=== PATIENT | male | born 2000 | race Hispanic/Latino ===

== ENCOUNTER 2024-07-03 12:51 | Emergency (ER) | payer SELFPAY ==
[2024-07-03 13:41] LABS: Absolute Basophils 0.1 K/uL (0-0.5); Absolute Eosinophils 0.1 K/uL (0-0.5); Absolute Lymphocytes (CBC) 2.4 K/uL (0.7-4.9); Absolute Monocytes 1.1 K/uL (0.1-1.3); Absolute Neutrophil 7.3 K/uL (1.8-8.0); Basophils % 0.6 % (0-1.3); Eosinophils % 1.3 % (0-4.4); Hematocrit 48.9 % (39.6-49.0); Hemoglobin 16.6 g/dL (13.6-17.9); Lymphocytes % 21.6 % (15.3-44.8); MCH 32.1 pg (27.0-35.0); MCV 94.3 fL (80-100); MPV 8.9 fL (7.6-11.3); Monocytes % 9.9 % (3.3-12.3); Neutrophils % 66.6 % (41.7-73.7); Nucleated Red Blood Cells % 0.2 % (0-0); Platelets 220 thou/uL (152-406); RBC Red Blood Cell Count 5.18 M/uL (4.33-5.43); Red Cell Distribution Width 13.8 % (12.1-15.2)
--- NOTE | 2024-07-03 13:45 | RAD REPORT ---
EXAM DESCRIPTION: CTAbdomen Pelvis W Contrast - 07/03/2024 1:26 pm CLINICAL HISTORY: Abdominal pain. GI BLEED COMPARISON: No comparisons TECHNIQUE: CT imaging of the abdomen and pelvis was performed with 100 ml non-ionic IV contrast. All CT scans are performed using dose optimization technique as appropriate and may include automated exposure control or mA/KV adjustment according to patient size. FINDINGS: The lung bases are clear. The liver demonstrates diffuse fatty infiltration. The spleen, pancreas, adrenal glands and kidneys a re within normal limits. No bowel obstruction, free air, free fluid or abscess. Moderate stool is present throughout the colon . The appendix is normal. No evidence of significant lymphadenopathy. No suspicious bony findings. IMPRESSION: No acute intra-abdominal or pelvic finding. Fatty liver.
[2024-07-03 13:58] LABS: Anion Gap 7.2 mEq/L (5.0-15.0); Bilirubin Total 0.8 mg/dL (0.2-1.0); Globulin 4.2 g/dL (2.3-3.5); Protein, Total 8.2 g/dL (6.4-8.2)
[2024-07-03 14:00] LABS: Potassium 4.2 mEq/L (3.5-5.1)
[2024-07-03 15:47] LABS: Sqamous Epithelial None Seen /HPF (None Seen); Urine Bacteria None Seen /HPF (<20); Urine Bilirubin NEGATIVE (Negative); Urine Blood Negative (Negative); Urine Clarity Clear (Clear); Urine Color Light-Yellow (Yellow); Urine Crystals Unidentified Few /HPF (None Seen); Urine Culture Reflex Order NOT NEEDED; Urine Glucose NEGATIVE (Negative); Urine Ketones NEGATIVE (Negative); Urine Microscopic Reflex YN ORDER UMIC; Urine Nitrite NEGATIVE (Negative); Urine Protein TRACE (Negative); Urine Urobilinogen Normal (Normal); Urine pH 7.5 (5.0-7.0)
[2024-07-03 15:48] LABS: Specific Gravity > 1.030 (1.005-1.030)
--- NOTE | 2024-07-03 15:57 | ER ---
Nurse's Notes [facility] Name: Abraham Dickey Jr Age: 23 yrs Sex: Male : 2000 Arrival Date: 07/03/2024 Time: 12:51 Bed 13 Private MD: Diagnosis: Other hemorrhoids-internal Presentation: 07/03 13:03 Chief complaint: Patient states: for past 2 weeks when I poop it's bright red blood, iw diarrhea with blood X 3 days, denies abd pain. Coronavirus screen: At this time, the client does not indicate any symptoms associated with coronavirus-19. Ebola Screen: No symptoms or risks identified at this time. Onset of symptoms was June 17, 2024. 13:03 Method Of Arrival: Ambulatory 13:03 Acuity: RUBI 3 13:38 Initial Sepsis Screen: Does the patient meet any 2 criteria? No. Patient's initial mb9 sepsis screen is negative. Does the patient have a suspected source of infection? No. Patient's initial sepsis screen is negative. Risk Assessment: Do you want to hurt yourself or someone else? Patient reports no desire to harm self or others. Historical: - Allergies: 13:05 Pollen; iw - Home Meds: 13:05 None [Active]; iw - PMHx: 13:05 None; iw - PSHx: 13:05 None; iw - Immunization history:: Adult Immunizations not up to date. - Infectious Disease History:: Denies. - Social history:: Smoking status: Reported history of juuling and/or vaping. Screenin:38 [facility] ED Fall Risk Assessment (Adult) History of falling in the last 3 months, mb9 including since admission No falls in past 3 months (0 pts) Confusion or Disorientation No (0 pts) Intoxicated or Sedated No (0 pts) Impaired Gait No (0 pts) Mobility Assist Device Used No (0 pt) Altered Elimination No (0 pt) Score/Fall Risk Level 3 or more points = High Risk Oriented to surroundings, Maintained a safe environment, Educated pt \T\ family on fall prevention, incl call for assistance when getting out of bed, Assessed \T\ reinforced patient's understanding of fall precautions. Abuse screen: Denies threats or abuse. Nutritional screening: No deficits noted. Tuberculosis screening: No symptoms or risk factors identified. Assessment: 13:38 General: Appears in no apparent distress. Behavior is calm, cooperative. Pain: Denies mb9 pain. Neuro: Hood Agitation-Sedation Scale (RASS): 0 - Alert and Calm Level of Consciousness is awake, alert, obeys commands, Oriented to person, place, time, situation, Appropriate for age. Cardiovascular: Patient's skin is warm and dry. Respiratory: Airway is patent Respiratory effort is even, unlabored, Respiratory pattern is regular, symmetrical. GI: Abdomen is round non-distended, Bowel sounds present X 4 quads. Abd is soft and non tender X 4 quads. Reports diarrhea, bloody stool. : No signs and/or symptoms were reported regarding the genitourinary system. EENT: No signs and/or symptoms were reported regarding the EENT system. Derm: Skin is pink, warm \T\ dry. Musculoskeletal: Range of motion: intact in all extremities. 15:21 Reassessment: No changes from previously documented assessment. Patient and/or family mb9 updated on plan of care and expected duration. Pain level reassessed. Patient is alert, oriented x 3, equal unlabored respirations, skin warm/dry/pink. Vital Signs: 13:03 BP 124 / 87; Pulse 105; Resp 16; Pulse Ox 98% on R/A; Weight 117.93 kg; Height 6 ft. 3 iw in. ; Pain 0/10; 14:27 BP 120 / 71; Pulse 83; Resp 18; Pulse Ox 98% on R/A; mb9 13:03 Body Mass Index 32.50 (117.93 kg, 190.5 cm) iw 13:03 Pain Scale: Adult iw ED Course: 12:55 Patient arrived in ED. ra3 12:58 Cheri Keith PA-C is PHCP. sb4 12:58 Arik Groves MD is Attending Physician. sb4 13:05 Triage completed. iw 13:05 Arm band placed on. iw 13:26 Shaylee Birch, ZEENAT is Primary Nurse. mb9 13:27 CT Abd/Pelvis - IV Contrast Only In Process Unspecified. EDMS 13:37 Initial lab(s) drawn, by me, sent to lab. Inserted saline lock: 20 gauge in left mb9 antecubital area, using aseptic technique. Blood collected. Flushed with 10 mL NS. 13:39 Placed in gown. Bed in low position. Call light in reach. Side rails up X 1. Provided mb9 Education on: press call light if needing anything. Client placed on continuous cardiac and pulse oximetry monitoring. NIBP monitoring applied. phototypesetting equipment monitor on. Door closed. Noise minimized. Warm blanket given. Pillow given. 13:39 No provider procedures requiring assistance completed. mb9 13:39 CBC with Diff Sent. mb9 13:39 CMP Sent. mb9 13:39 Lipase Sent. mb9 15:56 Josafat Mendez MD is Referral Physician. sb4 16:07 IV discontinued, intact, bleeding controlled, No redness/swelling at site. Pressure mb9 dressing applied. Administered Medications: No medications were administered Medication: 13:38 VIS not applicable for this client. mb9 Outcome: 15:57 Discharge ordered by . sb4 16:07 Discharged to home ambulatory, mb9 16:07 Condition: stable 16:07 Discharge instructions given to patient, Instructed on discharge instructions, follow up and referral plans. Demonstrated understanding of instructions, follow-up care, 16:21 Patient left the ED. mb9 Signatures: Dispatcher [employer] EDSariah Oquendo RN Cheri Grant, PA-C PA-C sb4 Shaylee Birch RN RN mb9 Genoveva Willams ra3 Corrections: (The following items were deleted from the chart) 14:35 14:27 Pulse 83bpm; Resp 18bpm; Pulse Ox 98% RA; mb9 mb9
--- NOTE | 2024-07-03 15:57 | EDPHYS ---
Physician Documentation [facility] Name: Abraham Dickey Jr Age: 23 yrs Sex: Male : 2000 Arrival Date: 07/03/2024 Time: 12:51 Bed 13 Private MD: ED Physician Arik Groves HPI: 07/03 13:12 This 23 yrs old Male presents to ER via Ambulatory with complaints of Diarrhea sb4 - with blood x2days. 13:12 The patient presents to the emergency department with diarrhea. Onset: The sb4 symptoms/episode began/occurred 2 day(s) ago. patient states that he has had bright red blood in his stool for about 2 weeks now and 3 days ago it turned into diarrhea. he denies any pain in his rectum or abdomen. no nausea, vomiting, fevers. denies any recent antibiotics, nsaid, or excessive alcohol use. denies any prior occurrences. states he usually has normal BMs. Historical: - Allergies: 13:05 Pollen; iw - Home Meds: 13:05 None [Active]; iw - PMHx: 13:05 None; iw - PSHx: 13:05 None; iw - Immunization history:: Adult Immunizations not up to date. - Infectious Disease History:: Denies. - Social history:: Smoking status: Reported history of juuling and/or vaping. ROS: 13:12 Constitutional: Negative for fever, chills, and weight loss, sb4 13:12 Abdomen/GI: Positive for diarrhea, rectal bleeding, 13:12 All other systems are negative, Exam: 13:12 Constitutional: This is a well developed, well nourished patient who is awake, alert, sb4 and in no acute distress. Head/Face: Normocephalic, atraumatic. Eyes: Extra-ocular motions intact. Periorbital areas with no swelling, redness, or edema. ENT: Mucous membranes moist. Cardiovascular: Regular rate and rhythm with a normal S1 and S2. Respiratory: Lungs have equal breath sounds bilaterally, clear to auscultation and percussion. No rales, rhonchi or wheezes noted. No increased work of breathing, no retractions or nasal flaring. Abdomen/GI: Soft, non-tender, no distension. Skin: Warm, dry with normal turgor. Normal color with no rashes, no lesions, and no evidence of cellulitis. 13:12 Abdomen/GI: Rectal exam: the exam is deferred, because of patient request, refused, Vital Signs: 13:03 BP 124 / 87; Pulse 105; Resp 16; Pulse Ox 98% on R/A; Weight 117.93 kg; Height 6 ft. 3 iw in. ; Pain 0/10; 14:27 BP 120 / 71; Pulse 83; Resp 18; Pulse Ox 98% on R/A; mb9 13:03 Body Mass Index 32.50 (117.93 kg, 190.5 cm) iw 13:03 Pain Scale: Adult iw MDM: 13:03 Patient medically screened. sb4 15:56 Data reviewed: vital signs, nurses notes, lab test result(s), radiologic studies, and sb4 as a result, I will discharge patient. Counseling: I had a detailed discussion with the patient and/or guardian regarding the historical points, exam findings, and any diagnostic results supporting the discharge/admit diagnosis, lab results, radiology results, the need for outpatient follow up, a accountant supervisor, to return to the emergency department if symptoms worsen or persist or if there are any questions or concerns that arise at home. 07/03 13:12 Order name: CBC with Diff; Complete Time: 13:52 sb4 07/03 13:12 Order name: CMP; Complete Time: 14:01 sb4 07/03 13:12 Order name: Lipase; Complete Time: 14:01 sb4 07/03 13:12 Order name: Urinalysis w/ reflexes; Complete Time: 15:48 sb4 07/03 13:12 Order name: CT Abd/Pelvis - IV Contrast Only sb4 07/03 13:12 Order name: IV Saline Lock; Complete Time: 13:39 sb4 07/03 13:12 Order name: Labs collected and sent; Complete Time: 13:39 sb4 Administered Medications: No medications were administered Disposition: 20:02 Co-signature as Attending Physician, Arik Groves MD I reviewed the patient's care rn provided by the Advanced Practice Provider and agree with the diagnosis and treatment plan. Disposition Summary: 07/03/24 15:57 Discharge Ordered Notes: Location: Home sb4 Problem: new sb4 Symptoms: have improved sb4 Condition: Stable sb4 Diagnosis - Other hemorrhoids - internal sb4 Followup: sb4 - With: Josafat Mendez MD - When: As needed - Reason: Further diagnostic work-up, Recheck today's complaints, Re-evaluation by your physician Discharge Instructions: - Discharge Summary Sheet sb4 - Hemorrhoids, [id number] sb4 Forms: - Work release form iw - Patient Portal Instructions sb4 - Leadership Thank You Letter sb4 Signatures: Dispatcher [employer] Sariah Shukla RN RN iw Arik Groves MD MD rn Brown, Sophia, PA-C PA-C sb4 Shaylee Birch RN RN mb9
[2024-07-03 16:25] VITALS: O2SAT 98
[2024-07-03 16:26] VITALS: BP 120/71
== END 2024-07-03 16:21 | disposition home or self-care (01) ==
LOC: ER 12:51
DX: K64.8 Other hemorrhoids (principal)
CPT/HCPCS: 36415; 74177; 80053; 81001; 83690; 85025; Q9967

== ENCOUNTER 2024-07-10 12:05 | Emergency (ER) | payer SELFPAY ==
[2024-07-10] MEDS ORDERED: KETOROLAC 30 MG/ML INJ ONE (13:23)
[2024-07-10] MEDS ORDERED: LIDOCAINE 4% PATCH ONE (13:25)
[2024-07-10] MEDS ORDERED: methocarbamoL 500 MG TAB ONE (13:25)
[2024-07-10] MEDS ORDERED: HYDROCODONE/APAP 7.5/325 MG TAB ONE (14:26)
--- NOTE | 2024-07-10 15:40 | EDPHYS ---
Physician Documentation [facility] Name: Abraham Dickey Jr Age: 23 yrs Sex: Male : 2000 Arrival Date: 07/10/2024 Time: 12:05 Bed 12 Private MD: ED Physician Rizwana Laura HPI: 07/10 13:18 This 23 yrs old Male presents to ER via Ambulatory with complaints of left sd2 buttcheek pain. 13:18 23 yo M presents with CC of left gluteal pain consistent with his sciatica flares in sd2 the past. 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 Able to ambulate and continue to work but with continued pain.. No numbness, weakness, bowel or bladder issues. has tried Ibuprofen and Tylenol without relief. Had some improvement with lidocaine patch. . Historical: - Allergies: 12:33 Pollen; ll1 - Home Meds: 12:33 None [Active]; ll1 - PMHx: 12:33 None; ll1 - PSHx: 12:33 None; ll1 - Immunization history:: Adult Immunizations up to date. - Infectious Disease History:: Denies. - Social history:: Smoking status: Patient denies any tobacco usage or history of. ROS: 13:18 Constitutional: Negative for fever, chills, and weight loss, Eyes: Negative for injury, sd2 pain, redness, and discharge, Cardiovascular: Negative for chest pain, palpitations, and edema, Respiratory: Negative for shortness of breath, cough, wheezing. Abdomen/GI: Negative for abdominal pain, nausea, vomiting, diarrhea. Back: Negative for injury and positive for pain, MS/Extremity: Negative for injury and deformity, Skin: Negative for injury, rash, and discoloration, Neuro: Negative for headache, numbness and tingling. Exam: 13:18 Constitutional: This is a well developed, well nourished patient who is awake, alert, sd2 and in no acute distress. Head/Face: Normocephalic, atraumatic. Cardiovascular: Regular rate and rhythm with a normal S1 and S2. No gallops, murmurs, or rubs. 2+ distal pulses. Respiratory: Lungs have equal breath sounds bilaterally, clear to auscultation and percussion. No rales, rhonchi or wheezes noted. No increased work of breathing, no retractions or nasal flaring. Abdomen/GI: Soft, non-tender, with normal bowel sounds. No guarding or rebound. No evidence of tenderness throughout. Back: No spinal tenderness. No costovertebral tenderness. Full range of motion. Skin: Warm, dry with normal turgor. Normal color with no rashes, no lesions, and no evidence of cellulitis. MS/ Extremity: Pulses equal, no cyanosis. Neurovascular intact. Full, normal range of motion. TTP of left gluteal area. Neuro: Awake and alert, GCS 15, oriented to person, place, time, and situation. Cranial nerves II-XII grossly intact. Motor strength 5/5 in all extremities. Sensory grossly intact. Cerebellar exam normal. Normal gait. Psych: Awake, alert, with orientation to person, place and time. Behavior, mood, and affect are within normal limits. Vital Signs: 12:34 BP 117 / 75; Pulse 82; Resp 17; Temp 97.9; Pulse Ox 98% ; Weight 117.93 kg; Height 6 ll1 ft. 3 in. ; Pain 9/10; 14:29 Pain 9/10; me1 14:57 Pain 2/10; me1 15:23 BP 135 / 79; Pulse 71; Resp 16; Temp 98.4; Pulse Ox 98% on R/A; Pain 2/10; me1 12:34 Body Mass Index 32.50 (117.93 kg, 190.5 cm) ll1 12:34 Pain Scale: Adult ll1 14:29 Pain Scale: Adult me1 14:57 Pain Scale: Adult me1 15:23 Pain Scale: Adult me1 MDM: 12:38 Patient medically screened. sd2 13:18 Differential Diagnosis sciatica, spinal stenosis, muscle spasm, fracture among others. sd2 Data reviewed: vital signs, nurses notes. I considered the following discharge prescriptions or medication management in the emergency department Medications were administered in the Emergency Department. See MAR. Historians other than the Patient: Spouse/Significant Other: SO at bedside provides further history. 13:56 Counseling: I had a detailed discussion with the patient and/or guardian regarding the sd2 historical points, exam findings, and any diagnostic results supporting the discharge/admit diagnosis, the need for outpatient follow up, to return to the emergency department if symptoms worsen or persist or if there are any questions or concerns that arise at home. ED course: Counseled patient on need for continued supportive care and outpatient follow up with PCP. Chiropractor previously helped so he may return there again for evaluation as well. No red flags on history or exam. Ambulatory. No focal neuro deficits. Verbalizes understanding of discharge plan and strict return precautions. . Administered Medications: 13:33 Drug: Ketorolac IM 60 mg IM once Route: IM; Site: left vastus lateralis; ll1 14:00 Follow up: Response: No adverse reaction; Pain is unchanged, physician notified me1 13:33 Drug: Methocarbamol PO 1000 mg PO once Route: PO; ll1 14:00 Follow up: Response: No adverse reaction; Pain is unchanged, physician notified me1 13:33 Drug: Lidoderm Topical Patch 5 % (700 mg/patch) 1 patches Topical once; leave on for 12 ll1 hours; cover most painful area; may cut into smaller pieces {Note: L buttocks.} Route: Topical; Site: affected area; 14:00 Follow up: Response: No adverse reaction; Pain is unchanged, physician notified me1 14:29 Drug: Hydrocodone-Acetaminophen PO (7.5 mg-325 mg) 1 tabs PO once Route: PO; oh1 14:57 Follow up: Pain 2/ Adult; Response: No adverse reaction; Pain is decreased me1 Disposition Summary: 07/10/24 15:39 Discharge Ordered Problem: new sd2 Symptoms: have improved sd2 Condition: Stable sd2 Diagnosis - Left buttock pain sd2 - History of sciatica sd2 Followup: sd2 - With: Private Physician - When: 2 - 3 days - Reason: Recheck today's complaints, Continuance of care, Re-evaluation by your physician Discharge Instructions: - Discharge Summary Sheet ll1 - Sciatica sd2 - Sciatica Rehab-[facility] sd2 Forms: - Work release form ll1 - Medication Reconciliation Form sd2 - Antibiotic Education sd2 - Prescription Opioid Use sd2 - Patient Portal Instructions sd2 - Leadership Thank You Letter sd2 Prescriptions: - acetaminophen-codeine 300-30 mg Oral tablet - take 1 tablet ORAL route every 4 hours as needed for pain; 12 tablet; Refills: sd2 0, Product Selection Permitted - Ibuprofen 800 mg Oral Tablet - take 1 tablet ORAL route every 8 hours As needed take with food; 30 tablet; sd2 Refills: 0, Product Selection Permitted - methocarbamol 500 mg Oral tablet - take 2 tablets ORAL route every 8 hours As needed; 30 tablet; Refills: 0, sd2 Product Selection Permitted Signatures: Ismael Ly RN RN ll1 Rizwana Laura MD MD sd2 Anaya Morrison RN RN me1
--- NOTE | 2024-07-10 15:40 | ER ---
Nurse's Notes [facility] Name: Abraham Dickey Jr Age: 23 yrs Sex: Male : 2000 Arrival Date: 07/10/2024 Time: 12:05 Bed 12 Private MD: Diagnosis: Left buttock pain;History of sciatica Presentation: 07/10 12:34 Chief complaint: Patient states: L buttocks pain for 3 weeks. States it feels like his ll1 sciatica again. Coronavirus screen: Client denies travel out of the [place] in the last 14 days. At this time, the client does not indicate any symptoms associated with coronavirus-19. Ebola Screen: Patient denies travel to an Ebola-affected area in the 21 days before illness onset. Initial Sepsis Screen: Does the patient meet any 2 criteria? No. Patient's initial sepsis screen is negative. Does the patient have a suspected source of infection? No. Patient's initial sepsis screen is negative. Risk Assessment: Do you want to hurt yourself or someone else? Patient reports no desire to harm self or others. Onset of symptoms was June 21, 2024. 12:34 Method Of Arrival: Ambulatory ll1 12:34 Acuity: RUBI 4 ll1 Triage Assessment: 12:33 General: Appears in no apparent distress. Behavior is calm, cooperative, appropriate ll1 for age. Pain: Complains of pain in L buttocks Pain currently is 5 out of 10 on a pain scale. Quality of pain is described as aching, Pain began 3 weeks ago Aggravated by increased activity, weight bearing. Musculoskeletal: Circulation, motion, and sensation intact. Capillary refill < 3 seconds, in left toes. Reports pain in L buttocks. Historical: - Allergies: 12:33 Pollen; ll1 - Home Meds: 12:33 None [Active]; ll1 - PMHx: 12:33 None; ll1 - PSHx: 12:33 None; ll1 - Immunization history:: Adult Immunizations up to date. - Infectious Disease History:: Denies. - Social history:: Smoking status: Patient denies any tobacco usage or history of. Screenin:34 [facility] ED Fall Risk Assessment (Adult) History of falling in the last 3 months, ll1 including since admission No falls in past 3 months (0 pts) Confusion or Disorientation No (0 pts) Intoxicated or Sedated No (0 pts) Impaired Gait Yes (1 pt) Mobility Assist Device Used No (0 pt) Altered Elimination No (0 pt) Score/Fall Risk Level 0 - 2 = Low Risk Maintained a safe environment, Hourly rounding (assess needs \T\ fall precautionary measures) done. Abuse screen: Denies threats or abuse. Nutritional screening: No deficits noted. Tuberculosis screening: No symptoms or risk factors identified. Assessment: 13:34 Reassessment: No changes from previously documented assessment. Patient and/or family ll1 updated on plan of care and expected duration. Pain level reassessed. Patient is alert, oriented x 3, equal unlabored respirations, skin warm/dry/pink. 14:00 Reassessment:. General: Appears uncomfortable, well groomed, well developed, well me1 nourished, Behavior is calm, cooperative, appropriate for age. Pain: Complains of pain in left gluteus yakelin Pain radiates to left leg Pain currently is 9 out of 10 on a pain scale. Quality of pain is described as shooting, Pain began suddenly, Is continuous. Neuro: Level of Consciousness is awake, alert, obeys commands, Oriented to person, place, time, situation, Appropriate for age. Cardiovascular: Patient's skin is warm and dry. Respiratory: Airway is patent Respiratory effort is even, unlabored, Respiratory pattern is regular, symmetrical. GI: No signs and/or symptoms were reported involving the gastrointestinal system. : No signs and/or symptoms were reported regarding the genitourinary system. EENT: No signs and/or symptoms were reported regarding the EENT system. Derm: Skin is intact, is healthy with good turgor, Skin is pink, warm \T\ dry. Musculoskeletal: Reports pain in left gluteus yakelin. Vital Signs: 12:34 BP 117 / 75; Pulse 82; Resp 17; Temp 97.9; Pulse Ox 98% ; Weight 117.93 kg; Height 6 ll1 ft. 3 in. ; Pain 9/10; 14:29 Pain 9/10; me1 14:57 Pain 2/10; me1 15:23 BP 135 / 79; Pulse 71; Resp 16; Temp 98.4; Pulse Ox 98% on R/A; Pain 2/10; me1 12:34 Body Mass Index 32.50 (117.93 kg, 190.5 cm) ll1 12:34 Pain Scale: Adult ll1 14:29 Pain Scale: Adult me1 14:57 Pain Scale: Adult me1 15:23 Pain Scale: Adult me1 ED Course: 12:06 Patient arrived in ED. im 12:25 Arm band placed on Patient placed in an exam room, on a stretcher. ll1 12:36 Triage completed. ll1 12:38 Rizwana Laura MD is Attending Physician. sd2 13:53 Anaya Morrison, ZEENAT is Primary Nurse. me1 14:00 Patient has correct armband on for positive identification. Bed in low position. Call me1 light in reach. Side rails up X 1. Provided Education on: POC. Verbalized understanding. . 14:00 No provider procedures requiring assistance completed. Patient did not have IV access me1 during this emergency room visit. Administered Medications: 13:33 Drug: Ketorolac IM 60 mg IM once Route: IM; Site: left vastus lateralis; ll1 14:00 Follow up: Response: No adverse reaction; Pain is unchanged, physician notified me1 13:33 Drug: Methocarbamol PO 1000 mg PO once Route: PO; ll1 14:00 Follow up: Response: No adverse reaction; Pain is unchanged, physician notified me1 13:33 Drug: Lidoderm Topical Patch 5 % (700 mg/patch) 1 patches Topical once; leave on for 12 ll1 hours; cover most painful area; may cut into smaller pieces {Note: L buttocks.} Route: Topical; Site: affected area; 14:00 Follow up: Response: No adverse reaction; Pain is unchanged, physician notified me1 14:29 Drug: Hydrocodone-Acetaminophen PO (7.5 mg-325 mg) 1 tabs PO once Route: PO; me1 14:57 Follow up: Pain 2/10 Adult; Response: No adverse reaction; Pain is decreased me1 Medication: 14:00 VIS not applicable for this client. me1 Outcome: 15:39 Discharge ordered by . sd2 15:48 Discharged to home ambulatory, with significant other, me1 15:48 Condition: stable 15:48 Discharge instructions given to patient, significant other, Instructed on discharge instructions, follow up and referral plans. medication usage, Demonstrated understanding of instructions, follow-up care, medications, Prescriptions given X 3, 15:49 Patient left the ED. me1 Signatures: Ismael Ly RN RN ll1 Rizwana Laura MD MD sd2 Mihaela Proctor Michelle, RN RN me1 Corrections: (The following items were deleted from the chart) 15:22 14:29 BP 9 / ???; Pain 9/10, Adult; me1 me1
[2024-07-10 16:05] VITALS: O2SAT 98
[2024-07-10 16:10] VITALS: BP 135/79; TEMP 98.4
== END 2024-07-10 15:49 | disposition home or self-care (01) ==
LOC: ER 12:05
DX: M54.32 Sciatica, left side (principal)
CPT/HCPCS: 96372; 99284; J2001

== ENCOUNTER 2024-08-06 06:55 | Emergency (ER) | payer SELFPAY ==
[2024-08-06] MEDS ORDERED: ONDANSETRON 4 MG/2 ML VIAL ONE (07:33)
[2024-08-06] MEDS ORDERED: AZITHROMYCIN 250 MG TAB ONE (07:33)
[2024-08-06] MEDS ORDERED: CEFTRIAXONE 1000 MG/VIAL ONE (07:33)
[2024-08-06] MEDS ORDERED: NA CHLORIDE 0.9% 1,000 ML ONE (07:34)
[2024-08-06] MEDS ORDERED: KETOROLAC 30 MG/ML INJ ONE (07:34)
[2024-08-06 07:48] LABS: Sqamous Epithelial <5 /HPF (None Seen); Urine Bacteria <20 /HPF (<20); Urine Bilirubin NEGATIVE (Negative); Urine Blood Trace (Negative); Urine Clarity Turbid (Clear); Urine Color Yellow (Yellow); Urine Culture Reflex Order REFLEXED; Urine Glucose NEGATIVE (Negative); Urine Ketones NEGATIVE (Negative); Urine Micro Reflex YN NO BILL MICROSCOPIC; Urine Mucus 2+ /HPF (None Seen); Urine Nitrite NEGATIVE (Negative); Urine Protein 1+ (Negative); Urine Urobilinogen 1+ (Normal); Urine WBC 20-50 /HPF (<5); Urine pH 6.5 (5.0-7.0)
--- NOTE | 2024-08-06 08:24 | RAD REPORT ---
EXAMINATION: ULTRASOUND DUPLEX OF SCROTUM AND TESTICLES CLINICAL INDICATION: Male, 23 years, PAIN TECHNIQUE: Duplex scan of the scrotal contents was performed including real-time color and spectral D oppler ultrasonography with arterial inflow and venous outflow. COMPARISON: No prior exam. FINDINGS: RIGHT TESTICLE AND EPIDIDYMIS: The right testicle is normal in size, measuring 5.0 x 3.2 x 2.6 cm. Normal, homogeneous echotexture with no focal lesion seen. The right epididymis is normal. Color Doppler flow in the right testicle is normal. LEFT TESTICLE AND EPIDIDYMIS: The left testicle is normal in size, measuring 3.6 x 3.3 x 3.1 cm. Normal, homogeneous echotexture with no focal lesion seen. The left epididymis is normal. Color Doppler flow in the left testicle is normal. ADDITIONAL FINDINGS: None. IMPRESSION: No acute or significant abnormalities.
[2024-08-06 08:41] LABS: Absolute Eosinophils 0.1 K/uL (0-0.5); Absolute Lymphocytes (CBC) 1.8 K/uL (0.7-4.9); Absolute Monocytes 1.1 K/uL (0.1-1.3); Absolute Neutrophil 9.3 K/uL (1.8-8.0); Basophils % 0.2 % (0-1.3); Eosinophils % 0.9 % (0-4.4); Hemoglobin 14.3 g/dL (13.6-17.9); Lymphocytes % 14.9 % (15.3-44.8); MCH 31.5 pg (27.0-35.0); MCV 92.9 fL (80-100); MPV 8.2 fL (7.6-11.3); Monocytes % 8.7 % (3.3-12.3); Neutrophils % 75.3 % (41.7-73.7); Platelets 244 thou/uL (152-406); RBC Red Blood Cell Count 4.52 M/uL (4.33-5.43); Red Cell Distribution Width 13.3 % (12.1-15.2)
[2024-08-06] MEDS ORDERED: TAMSULOSIN 0.4 MG SR CAP ONE (08:58)
[2024-08-06] MEDS ORDERED: MORPHINE 4 MG/ML SYR ONE (08:58)
[2024-08-06 08:59] LABS: Albumin 3.7 g/dL (3.4-5.0); Albumin/Globulin Ratio 0.8 (1.1-1.8); Anion Gap 6.3 mEq/L (5.0-15.0); Bilirubin Total 0.6 mg/dL (0.2-1.0); Globulin 4.4 g/dL (2.3-3.5); Potassium 4.3 mEq/L (3.5-5.1); Protein, Total 8.1 g/dL (6.4-8.2)
--- NOTE | 2024-08-06 09:04 | RAD REPORT ---
EXAMINATION: CT ABDOMEN AND PELVIS WITHOUT CONTRAST CLINICAL INDICATION: Abdominal distention;Flank pain TECHNIQUE: CT abdomen and pelvis was performed, without IV contrast, as per department protocol. Axia l, sagittal and coronal reconstructions were obtained. One or more of the following dose reduction techniques were used: Automated exposure control, adjustment of the mA and kV according to the patien t size, and iterative reconstruction. Unless otherwise specified, incidental findings do not require dedicated imaging follow-up. COMPARISON: 07/03/2024 FINDINGS: The lack of intravenous contrast limits the sensitivity of this exam for evaluation of solid visceral organs, vascular structures, and retroperitoneum. LOWER CHEST: The visualized lung bases are clear. LIVER: Normal in size and contour. No focal lesion. SPLEEN: Normal size. No focal lesion. PANCREAS: No mass, ductal dilation, or veronica-pancreatic fluid. ADRENALS: Normal; no mass. KIDNEYS AND URETERS: Normal size and contour. No hydronephrosis. URINARY BLADDER: Normal contour. GASTROINTESTINAL TRACT: No evidence of bowel obstruction, significant free fluid, free air or abscess . APPENDIX: Normal appendix. LYMPH NODES: No lymphadenopathy. MUSCULOSKELETAL: Lower lumbar posterior disc bulges are present. ADDITIONAL FINDINGS: None. IMPRESSION: No acute or concerning abnormalities in the abdomen or pelvis, with evaluation limited by lack of IV contrast.
--- NOTE | 2024-08-06 09:15 | EDPHYS ---
Physician Documentation [facility] Name: Abraham Dickey Jr Age: 23 yrs Sex: Male : 2000 Arrival Date: 08/06/2024 Time: 06:55 Bed 14 Private MD: ED Physician Dalton Juares HPI: 08/06 08:37 This 23 yrs old Male presents to ER via Ambulatory with complaints of yisel Testicular Pain. 08:37 The patient presents with scrotal pain, of the left side, tenderness. Onset: The yisel symptoms/episode began/occurred 4 day(s) ago. Modifying factors: The symptoms are alleviated by nothing, remaining still, the symptoms are aggravated by nothing. Associated signs and symptoms: The patient has no apparent associated signs or symptoms. Severity of symptoms: At their worst the symptoms were moderate, severe, in the emergency department the symptoms are unchanged. The patient has not experienced similar symptoms in the past. Historical: - Allergies: 07:12 Pollen; iw - Home Meds: 07:12 None [Active]; iw - PMHx: 07:12 None; iw - PSHx: 07:12 None; iw - Immunization history:: Adult Immunizations not up to date. - Infectious Disease History:: Denies. - Social history:: Smoking status: Reported history of juuling and/or vaping. ROS: 08:38 Constitutional: Negative for fever, chills, and weight loss, Eyes: Negative for injury, yisel pain, redness, and discharge, ENT: Negative for injury, pain, and discharge, Neck: Negative for injury, pain, and swelling, Cardiovascular: Negative for chest pain, palpitations, and edema, Respiratory: Negative for shortness of breath, cough, wheezing, and pleuritic chest pain, MS/Extremity: Negative for injury and deformity, Skin: Negative for injury, rash, and discoloration, Neuro: Negative for headache, weakness, numbness, tingling, and seizure, Psych: Negative for depression, anxiety, suicide ideation, homicidal ideation, and hallucinations, Allergy/Immunology: Negative for hives, rash, and allergies, Endocrine: Negative for neck swelling, polydipsia, polyuria, polyphagia, and marked weight changes, Hematologic/Lymphatic: Negative for swollen nodes, abnormal bleeding, and unusual bruising, 08:38 Abdomen/GI: Positive for abdominal pain, of the anterior aspect of left lateral abdomen, posterior aspect of left lateral abdomen and left lower quadrant, 08:38 : Positive for testicular pain of the left testicle, Exam: 08:38 Constitutional: This is a well developed, well nourished patient who is awake, alert, yisel and in no acute distress. Head/Face: Normocephalic, atraumatic. Eyes: Pupils equal round and reactive to light, extra-ocular motions intact. Lids and lashes normal. Conjunctiva and sclera are non-icteric and not injected. Cornea within normal limits. Periorbital areas with no swelling, redness, or edema. ENT: Nares patent. No nasal discharge, no septal abnormalities noted. Tympanic membranes are normal and external auditory canals are clear. Oropharynx with no redness, swelling, or masses, exudates, or evidence of obstruction, uvula midline. Mucous membranes moist. Neck: Trachea midline, no thyromegaly or masses palpated, and no cervical lymphadenopathy. Supple, full range of motion without nuchal rigidity, or vertebral point tenderness. No Meningismus. Chest/axilla: Normal chest wall appearance and motion. Nontender with no deformity. No lesions are appreciated. Cardiovascular: Regular rate and rhythm with a normal S1 and S2. No gallops, murmurs, or rubs. Normal PMI, no JVD. No pulse deficits. Respiratory: Lungs have equal breath sounds bilaterally, clear to auscultation and percussion. No rales, rhonchi or wheezes noted. No increased work of breathing, no retractions or nasal flaring. Abdomen/GI: Soft, non-tender, with normal bowel sounds. No distension or tympany. No guarding or rebound. No evidence of tenderness throughout. Back: No spinal tenderness. No costovertebral tenderness. Full range of motion. Skin: Warm, dry with normal turgor. Normal color with no rashes, no lesions, and no evidence of cellulitis. MS/ Extremity: Pulses equal, no cyanosis. Neurovascular intact. Full, normal range of motion. Neuro: Awake and alert, GCS 15, oriented to person, place, time, and situation. Cranial nerves II-XII grossly intact. Motor strength 5/5 in all extremities. Sensory grossly intact. Cerebellar exam normal. Normal gait. Psych: Awake, alert, with orientation to person, place and time. Behavior, mood, and affect are within normal limits. 08:38 : CVA tenderness, is absent, Male external genitalia: normal, Bladder: is normal, Sexual behavior: the patient is sexually active, and reports a single partner, Vital Signs: 07:11 BP 127 / 83; Pulse 92; Resp 16; Temp 97.4; Pulse Ox 97% ; Weight 120.2 kg; Height 6 ft. iw 3 in. ; Pain 0/10; 10:07 BP 124 / 78; Pulse 84; Resp 16; Pulse Ox 100% on R/A; iw 07:11 Body Mass Index 33.12 (120.20 kg, 190.5 cm) iw 07:11 Pain Scale: Adult iw MDM: 07:26 Patient medically screened. yisel 08:41 Differential diagnosis: nonspecific abdominal pain, UTI, prostatitis, urethritis, yisel non-specific abd pain, Prostatitis, Pyelonephritis, Ureterolithiasis, urinary tract infection. Data reviewed: vital signs, nurses notes, lab test result(s), radiologic studies, CT scan, plain films, ultrasound. Consideration of Admission/Observation Escalation of care including admission/observation considered. I considered the following discharge prescriptions or medication management in the emergency department Medications were administered in the Emergency Department. See MAR. Independent interpretation of the following test(s) in the Emergency Department CT Scan: My interpretation is ct stone. Test considered but Not performed: Ultrasound no abd usg. Care significantly affected by the following chronic conditions: Obesity, none. 08/06 07:02 Order name: [facility]; Complete Time: 08:34 rt 08/06 07:27 Order name: CBC with Diff; Complete Time: 09:12 yisel 08/06 07:27 Order name: Comprehensive Metabolic Panel; Complete Time: 09:12 yisel 08/06 07:51 Order name: Urine Culture EDMS 08/06 07:02 Order name: US Scrotum Testicles; Complete Time: 08:34 rt 08/06 08:35 Order name: CT Stone Protocol; Complete Time: 09:12 yisel Administered Medications: 08:19 Drug: NS 0.9% IV 1000 ml IV at 1 bolus Per protocol; 1000 mL bolus Route: IV; Rate: 1 kc6 bolus; Site: right antecubital; 09:40 Follow up: Response: No adverse reaction; IV Status: Completed infusion; IV Intake: kc6 1000ml 08:19 Drug: Ketorolac IVP 30 mg IVP once Route: IVP; Site: right antecubital; kc6 09:41 Follow up: Response: No adverse reaction kc6 08:19 Drug: AZITHromycin PO 1 grams PO once Route: PO; kc6 09:41 Follow up: Response: No adverse reaction kc6 08:19 Drug: Rocephin - Rocephin (cefTRIAXone) IVPB 1 grams IVPB once over 30 mins; (mix in 50 kc6 mL NS) Route: IVPB; Infused Over: 30 mins; Site: right antecubital; 09:40 Follow up: Response: No adverse reaction; IV Status: Completed infusion; IV Intake: [id number] 08:19 Drug: Ondansetron IVP 4 mg IVP once; over 2 minutes Route: IVP; Site: right antecubital;kc6 09:40 Follow up: Response: No adverse reaction kc6 09:40 Drug: Flomax PO 0.4 mg PO once Route: PO; kc6 09:40 Drug: morphine IVP or IV 4 mg IVP once over 4 mins Route: IVP; Infused Over: 4 mins; kc6 Site: right antecubital; 09:40 Drug: Doxycycline PO 200 mg PO once Route: PO; kc6 09:40 Drug: Ciprofloxacin PO 500 mg PO once Route: PO; kc6 Disposition Summary: 08/06/24 09:14 Discharge Ordered Notes: Location: Home yisel Problem: new yisel Symptoms: have improved yisel Condition: Stable yisel Diagnosis - UTI/ Urinary tract infection, site not specified yisel - Left testicular pain yisel - Epididymitis yisel - Epididymo-orchitis yisel Followup: yisel - With: Private Physician - When: 2 - 3 days - Reason: Recheck today's complaints, Continuance of care, Re-evaluation by your physician Followup: yisel - With: Adriano Michaels MD - When: 2 - 3 days - Reason: Recheck today's complaints, Re-evaluation by your physician Discharge Instructions: - Discharge Summary Sheet yisel - Epididymitis yisel - Testicular Self-Exam yisel - Urinary Tract Infection, Adult yisel - Kidney Stones, [id number] yisel - Urinary Tract Infection, Adult, [id number] yisel Forms: - Medication Reconciliation Form yisel - Antibiotic Education yisel - Prescription Opioid Use yisel - Patient Portal Instructions yisel - Leadership Thank You Letter yisel - Work release form Prescriptions: - Flomax 0.4 mg Oral capsule - take 1 capsule ORAL route once; 30 capsule; Refills: 0, Product Selection [facility] Permitted - acetaminophen-codeine 300-30 mg Oral tablet - take 2 tablet ORAL route every 6 hours; 20 tablet; Refills: 0, Product yisel Selection Permitted - ondansetron 4 mg Oral Tablet,disintegrating - take 1 tablet ORAL route every 6-8 hours; 20 tablet; Refills: 0, Product yisel Selection Permitted - Doxycycline Hyclate 100 mg Oral tablet - take 1 tablet ORAL route every 12 hours; 14 tablet; Refills: 0, Product yisel Selection Permitted - Cipro 500 mg Oral Tablet - take 1 tablet ORAL route every 12 hours for 7 days; 14 tablet; Refills: 0, [facility] Product Selection Permitted - Diclofenac Sodium 75 mg Oral tablet, delayed release (enteric coated) - take 1 tablet ORAL route 2 times per day; 20 tablet; Refills: 0, Product yisel Selection Permitted Signatures: Dispatcher [employer] Dalton Suh MD MD cha Williams, Irene RN Claudia Stratton RN RN kc6 Corrections: (The following items were deleted from the chart) 07:02 07:02 Urinalysis W/Microscopic+U.LAB.BRZ ordered. EDMS [place]
--- NOTE | 2024-08-06 09:15 | ER ---
Nurse's Notes [facility] Name: Abraham Dickey Jr Age: 23 yrs Sex: Male : 2000 Arrival Date: 08/06/2024 Time: 06:55 Bed 14 Private MD: Diagnosis: UTI/ Urinary tract infection, site not specified;Left testicular pain;Epididymitis;Epididymo-orchitis Presentation: 08/06 07:11 Chief complaint: Patient states: left testicle is sensitive to touch X 2-3 days , no iw swelling. Coronavirus screen: At this time, the client does not indicate any symptoms associated with coronavirus-19. Ebola Screen: No symptoms or risks identified at this time. Initial Sepsis Screen: Does the patient meet any 2 criteria? No. Patient's initial sepsis screen is negative. Does the patient have a suspected source of infection? No. Patient's initial sepsis screen is negative. Risk Assessment: Do you want to hurt yourself or someone else? Patient reports no desire to harm self or others. Onset of symptoms was August 03, 2024. 07:11 Method Of Arrival: Ambulatory iw 07:11 Acuity: RUBI 3 iw Historical: - Allergies: 07:12 Pollen; iw - Home Meds: 07:12 None [Active]; iw - PMHx: 07:12 None; iw - PSHx: 07:12 None; iw - Immunization history:: Adult Immunizations not up to date. - Infectious Disease History:: Denies. - Social history:: Smoking status: Reported history of juuling and/or vaping. Screenin:39 [facility] ED Fall Risk Assessment (Adult) History of falling in the last 3 months, kc6 including since admission No falls in past 3 months (0 pts) Confusion or Disorientation No (0 pts) Intoxicated or Sedated No (0 pts) Impaired Gait No (0 pts) Mobility Assist Device Used No (0 pt) Altered Elimination No (0 pt) Score/Fall Risk Level 0 - 2 = Low Risk Oriented to surroundings. Abuse screen: Denies threats or abuse. Denies injuries from another. Nutritional screening: No deficits noted. Tuberculosis screening: No symptoms or risk factors identified. Assessment: 10:06 Reassessment: Patient appears in no apparent distress at this time. Patient and/or iw family updated on plan of care and expected duration. Pain level reassessed. Patient is alert, oriented x 3, equal unlabored respirations, skin warm/dry/pink. Patient states feeling better. Patient states symptoms have improved. Vital Signs: 07:11 BP 127 / 83; Pulse 92; Resp 16; Temp 97.4; Pulse Ox 97% ; Weight 120.2 kg; Height 6 ft. iw 3 in. ; Pain 0/10; 10:07 BP 124 / 78; Pulse 84; Resp 16; Pulse Ox 100% on R/A; iw 07:11 Body Mass Index 33.12 (120.20 kg, 190.5 cm) iw 07:11 Pain Scale: Adult iw ED Course: 06:58 Patient arrived in ED. gm2 07:12 Triage completed. iw 07:13 Arm band placed on. iw 07:14 Claudia Walker, RN is Primary Nurse. kc6 07:26 Dalton Juares MD is Attending Physician. yisel 07:31 [facility] Sent. kc6 07:38 Patient has correct armband on for positive identification. Placed in gown. Bed in low kc6 position. Call light in reach. Side rails up X 1. Adult w/ patient. Pulse ox on. NIBP on. Door closed. Noise minimized. Lights dimmed. Pillow given. 07:39 Provided Education on: use of call light. kc6 07:39 Patient maintains SpO2 saturation greater than 95% on room air. kc6 08:03 Scrotum Testicles In Process Unspecified. EDMS 08:19 Inserted saline lock: 20 gauge in right antecubital area, using aseptic technique. kc6 Blood collected. Flushed with 10 mL NS. 08:45 CT Stone Protocol In Process Unspecified. EDMS 09:14 Adriano Michaels MD is Referral Physician. yisel 10:05 No provider procedures requiring assistance completed. IV discontinued, intact, iw bleeding controlled, No redness/swelling at site. Pressure dressing applied. Administered Medications: 08:19 Drug: NS 0.9% IV 1000 ml IV at 1 bolus Per protocol; 1000 mL bolus Route: IV; Rate: 1 kc6 bolus; Site: right antecubital; 09:40 Follow up: Response: No adverse reaction; IV Status: Completed infusion; IV Intake: kc6 1000ml 08:19 Drug: Ketorolac IVP 30 mg IVP once Route: IVP; Site: right antecubital; kc6 09:41 Follow up: Response: No adverse reaction kc6 08:19 Drug: AZITHromycin PO 1 grams PO once Route: PO; kc6 09:41 Follow up: Response: No adverse reaction kc6 08:19 Drug: Rocephin - Rocephin (cefTRIAXone) IVPB 1 grams IVPB once over 30 mins; (mix in 50 kc6 mL NS) Route: IVPB; Infused Over: 30 mins; Site: right antecubital; 09:40 Follow up: Response: No adverse reaction; IV Status: Completed infusion; IV Intake: [id number] 08:19 Drug: Ondansetron IVP 4 mg IVP once; over 2 minutes Route: IVP; Site: right antecubital;kc6 09:40 Follow up: Response: No adverse reaction kc6 09:40 Drug: Flomax PO 0.4 mg PO once Route: PO; kc6 09:40 Drug: morphine IVP or IV 4 mg IVP once over 4 mins Route: IVP; Infused Over: 4 mins; kc6 Site: right antecubital; 09:40 Drug: Doxycycline PO 200 mg PO once Route: PO; kc6 09:40 Drug: Ciprofloxacin PO 500 mg PO once Route: PO; kc6 Intake: 09:40 IV: 50ml; Total: 50ml. kc6 09:40 IV: 1000ml; Total: 1050ml. kc6 Outcome: 09:14 Discharge ordered by . yisel 10:07 Patient left the ED. iw 10:08 Discharged to home ambulatory, with family, iw 10:08 Condition: good 10:08 Discharge instructions given to patient, family, Instructed on discharge instructions, follow up and referral plans. medication usage, Demonstrated understanding of instructions, follow-up care, medications, Prescriptions given X 5 Signatures: Dispatcher [employer] Dalton Suh MD MD cha Williams, Irene, RN Claudia Stratton RN RN kc6 Mitchell, Ginger 2
[2024-08-06] MEDS ORDERED: DOXYCYCLINE 100 MG CAP PO ONE (09:25)
[2024-08-06] MEDS ORDERED: CIPROFLOXACIN HCL 500 MG TAB ONE (09:31)
[2024-08-06 10:33] VITALS: BP 124/78; TEMP 97.4; O2SAT 100
== END 2024-08-06 10:07 | disposition home or self-care (01) ==
LOC: ER 06:55
DX: N39.0 Urinary tract infection, site not specified (principal); N45.1 Epididymitis; N45.3 Epididymo-orchitis
CPT/HCPCS: 36415; 74176; 76377; 76870; 80053; 81001; 85025; 87086; 87088; 96365; 96375; 99284; J0696; J2405; J7030